=== PATIENT | female | born 1975 | race Caucasian/White ===

== ENCOUNTER 2019-11-10 10:28 | Outpatient (CLI) | payer BC, OTHER ==
[2019-11-11 14:12] LABS: SARS-CoV-2 MS2 Positive; SARS-CoV-2 N Gene Negative; SARS-CoV-2 S Gene Negative; SARS-CoV-2 orf1ab Negative
== END 2019-11-10 10:29 | disposition home or self-care (01) ==
LOC: LABBT 10:28
PROVIDERS: ATTEND Student in an Organized Health Care Education/Training Program
DX: Z01.812 Encounter for preprocedural laboratory examination (principal); Z11.59 Encounter for screening for other viral diseases; D25.9 Leiomyoma of uterus, unspecified
CPT/HCPCS: 87635; U0003

== ENCOUNTER 2019-11-15 07:51 | Day surgery (SDC) | payer BC ==
[2019-11-09 09:50] VITALS: BMI 22.1
[2019-11-10 13:49] LABS: BHCG - Serum Negative (NEGATIVE); Pregs Control Background? CLEAR/WHITE (CLR/WHITE); Pregs Control Bar Appear? YES (CONTROL BAR)
[2019-11-10 13:52] LABS: Hemoglobin 14.7 g/dL (12.0-16.0); Mean Corpuscular HGB CONC 33.8 g/dL (32.0-36.0); Mean Corpuscular Hemoglobin 31.6 pg (27.0-31.0); Mean Corpuscular Volume 93.6 fL (78.0-98.0); Platelet Count 187 thou/uL (130-400); RBC Distribution Width 10.7 % (11.5-14.5); Red Blood Cell (RBC) Count 4.65 mill/uL (4.20-5.40); White Blood Cell (WBC) Count 4.1 thou/uL (4.8-10.8)
[2019-11-15] MEDS ORDERED: Famotidine/PF 20 mg/2ml Vial ONE (08:10)
[2019-11-15] MEDS ORDERED: Gabapentin 300 MG CAP ONE (08:11)
[2019-11-15] MEDS ORDERED: CeleCOXIB 100 MG CAP ONE ×2 (08:11)
[2019-11-15] MEDS ORDERED: Bupivacaine PF 0.5% 30 ML VIAL ONE (09:31)
[2019-11-15] MEDS ORDERED: Lidocaine 1% w/Epinephrine 1:100K 20 ML VIAL ONE (09:31)
[2019-11-15] MEDS ORDERED: Fentanyl 100 MCG/2 ML VIAL ONE ×2 (09:33→12:46)
[2019-11-15] MEDS ORDERED: Midazolam HCl 2 mg/2 ml Vial ONE ×2 (09:33→09:35)
[2019-11-15] MEDS ORDERED: Promethazine HCl 25 MG/ML VIAL SLOW IVP PRN (10:38)
[2019-11-15] MEDS ORDERED: Promethazine HCl 25 MG/ML VIAL IM PRN (10:38)
[2019-11-15] MEDS ORDERED: Ondansetron HCl/PF 4 MG/2 ML Vial IVP PRN (10:38)
[2019-11-15] MEDS ORDERED: Ondansetron PF 4 MG/2 ML Vial ONE ×2 (11:52→15:33)
[2019-11-15] MEDS ORDERED: Rocuronium Bromide 10 MG/ML (10ML VIAL) ONE (11:52)
[2019-11-15] MEDS ORDERED: Naloxone HCl 0.4 mg/ml Vial ONE ×2 (11:52→12:11)
[2019-11-15] MEDS ORDERED: Lidocaine 1% PF 5 ML VIAL ONE (11:52)
[2019-11-15] MEDS ORDERED: Dexamethasone 20 MG/5 ML VIAL ONE (11:52)
[2019-11-15] MEDS ORDERED: Glycopyrrolate 0.2 MG/ML 5 ML SYRINGE ONE (11:52)
[2019-11-15] MEDS ORDERED: EPHEDRINE 25 MG/5 ML SYRINGE ONE (11:52)
[2019-11-15] MEDS ORDERED: PROPOFOL 200 MG/20 ML VIAL ONE (11:52)
[2019-11-15] MEDS ORDERED: Ketorolac Tromethamine 30 MG/ML VIAL ONE (11:52)
[2019-11-15] MEDS ORDERED: HYDROcodone/Acetaminophen 5/325 mg Tablet ONE (12:40)
[2019-11-15] MEDS ORDERED: Promethazine HCl 25 MG/ML VIAL ONE (15:56)
--- NOTE | 2019-11-15 18:30 | OP ---
DATE OF PROCEDURE: 11/15/2019 PREOPERATIVE DIAGNOSES: 1. Uterine fibroids. 2. Pelvic pain. POSTOPERATIVE DIAGNOSES: 1. Uterine fibroids. 2. Pelvic pain. PROCEDURES PERFORMED: Robotic-assisted total laparoscopic hysterectomy, bilateral salpingectomy with extracorporeal morcellation. ANESTHESIA: General endotracheal. ANTIQUE REFINISHER SURGEON: Heather Vásquez PA-C ESTIMATED BLOOD LOSS: 50 mL. IVF: 1200 mL of crystalloid. URINE OUTPUT: 380 mL of clear urine. COMPLICATIONS: None. DRAINS: Alberts catheter. PATHOLOGY: Uterus, cervix, and bilateral fallopian tubes. FINDINGS: Enlarged, 16-week size uterus, multiple fibroids present. Normal-appearing cervix and vagina. Normal-appearing ovaries and fallopian tubes bilaterally. Ureter and bladder noted to be intact throughout the case and excellent hemostasis at the conclusion was noted. DESCRIPTION OF PROCEDURE: Patient was taken to the operating room, where general anesthesia was obtained without difficulty. Patient was prepped and draped in a sterile fashion in the dorsal lithotomy position. A Alberts catheter was placed in the bladder. A speculum was placed in the vagina. The anterior lip of the cervix was grasped with a single-tooth tenaculum. The uterus then sounded to approximately 13 cm and the DEMARCUS manipulator was assembled with a 12 cm tip and a 4 cm colpotomizer ring. The DEMARCUS was then inserted into the uterus. Balloons were inflated. Tenaculum and speculum were removed out of the vagina. Legs were placed in low lithotomy. Attention was turned to the abdomen. A mixture of 1% lidocaine with epinephrine and 0.5% Marcaine plain was infiltrated into the umbilicus. Approximately 3 cm skin incision was made on the umbilicus at the superior aspect. The subcutaneous tissue below was grasped with Pradip clamps and the fascia was brought, tented up, and elevated. The Mayos were used to sharply incise the subcutaneous tissue and the fascia. This was extended to approximately 3 cm. The Mini GelPOINT was then placed inside this incision and the GelPOINT with a 12 mm trocar was affixed atop the Jcarlos. Pneumoperitoneum was obtained. Steep Trendelenburg was obtained. Right and left lower quadrant 8 mm robotic trocars placed under direct visualization after infiltrating with anesthetic. A right upper quadrant 11 mm port was also placed under direct visualization after infiltrating with anesthetic. The robot was then docked. The right robotic arm contained monopolar scissors. Left robotic arm contained a fenestrated bipolar. The surgeon console then took control. The right ovary was immediately visible. The uterus was somewhat deviated and twisted to the right side. Therefore, the uteroovarian on the right side since it was immediately visible was clamped and cauterized and incised. The fallopian tube was then able to be elevated and the mesosalpinx was cauterized and incised and then removed out of the abdomen. The round ligament was then visible on the right side. This was clamped and the midportion brought more immediately into the field of vision. It was noted at that time the external iliac was very close to this where I had clamped that. Therefore, the uteroovarian was taken down a little bit more by sequentially cauterizing and incising to the round ligament that then not freed that up and was able to be dissected out with the scissors and then incised in the midportion with not bringing the iliac into the field quite as much and keeping that away from any injury. The round ligament was incised and the posterior leaf of the broad ligament was incised. The retroperitoneum was begun to be dissected off the uterine vessels. The ureter was noted in the pelvic sidewall transperitoneally and then was able to be identified directly in the retroperitoneum. The anterior leaf of the broad ligament was also incised down to the bladder flap and then the bladder flap was incised tenting up on the thin peritoneum and incising with the scissors on cautery and then blunt dissection of the adventitia to the bladder was performed with the back end of the scissors and this brought the bladder down lower. Attention was then turned to the left side. The left fallopian tube was grasped and elevated. The mesosalpinx was cauterized and incised and then clamped across, cauterized, incised and removed out of the abdomen. The uteroovarian was also cauterized and incised on the left side and the round ligament was cauterized and incised and these two incisions then were met together after carefully achieving hemostasis of this vascular area. The anterior leaf of the broad ligament was incised down to below the level of the bladder flaps as well as the posterior leaf. At this time, the ureter was noted on the left side and it was very lateral. The uterine vessels were skeletonized on the left side and then clamped just above the level of the internal cervical os, was then fenestrated and cauterized several times. Attention was turned to the right side, where the right uterine vessels were adequately skeletonized and a bladder flap was further developed using the scoring on the pubocervical fascia and blunt dissection distally below the level of the colpotomizer ring. At that time, after adequate cautery of the right uterine pedicle was incised, there was some bleeding at that time and difficult hemostasis and at that time, it was noted that the ureter ran about 1 cm underneath where the top of the colpotomizer ring was as it crossed underneath the uterine vessel. Therefore, it was very close to the area of operation and the ureter could be visualized running across the anterior cervix, where it then went to insert on the trigone and this was visible. Therefore, this area was dissected down quite a ways in order to prevent any thermal spread or kinking of the ureter during the stricturing. The anterior colpotomy was performed. The left-sided vessels were again cauterized and incised. Pedicle was hemostatic and the posterior colpotomy was performed carefully approaching that laterally as the uterus was too heavy and boggy to lift up anteriorly. Once the uterus was completely transected, the DEMARCUS manipulator was removed out of the vagina and uterus and the balloon was placed in the vagina to maintain pneumoperitoneum. The vaginal cuff was irrigated copiously and hemostasis was achieved with fenestrated. The area on the right side where the ureter being close to the vaginal apex was evaluated and the ureter continued to vermiculate with extravasation of any fluid and it appeared to be well out of the way of any previous damage. The scissors were traded out for the needle nascar driver and a 2-0 Stratafix barbed suture was used to close the cuff carefully incorporating the pubocervical fascia, the vaginal mucosa, and posterior peritoneum in each bite. This was ran back for a second layer, and the needle was then removed out of the abdomen. Irrigation was again performed of all pedicles. Low pressure check was performed and hemostasis was noted to be excellent. The bladder was backfilled and no inadvertent injury to the bladder had occurred. At that time, the bag that had been previously placed into the abdomen was brought down into the pelvis. The sutures that were plicating the bag together were cut and removed out of the abdomen and the uterus was then placed into the bag easily. The bag was cinched up and brought out of the GelPOINT at the umbilicus and all instruments removed from the abdomen and the robot was then docked. At that time, the bag was brought out of the GelPOINT and the Jcarlos was removed and placed on the inside of the bag in order to hold the area open. The uterus was grasped with a Vane clamp and contained morcellation was performed using a C incision technique with an 11 blade. This took approximately an additional 15 minutes and once all tissue had been removed, the Jcarlos O was removed as well as the bag. There were no holes in the bag upon finishing the procedure. The incision of the umbilicus was irrigated and noted to be hemostatic. The fascia was reapproximated with 0 PDS in a running fashion with excellent reapproximation. The remainder of the anesthetic was infiltrated into all of the incisions. The skin was closed with a 4-0 Monocryl in a subcuticular fashion. Dermabond was applied. The vagina was checked and noted to be hemostatic with excellent closure. All instruments removed from the vagina. Patient tolerated the procedure well. Sponge and needle counts correct x2. Patient was taken to recovery room in stable condition. Patient received Ancef 2 g prior to the procedure. Job ID: [id number]
== END 2019-11-15 17:28 | disposition home or self-care (01) ==
LOC: SDC 07:51
PROVIDERS: ATTEND Student in an Organized Health Care Education/Training Program
PROC: 0UT74ZZ Resection of Bilateral Fallopian Tubes, Percutaneous Endoscopic Approach (ICD-10-PCS; principal; 2019-11-15)
PROC: 0UT94ZZ Resection of Uterus, Percutaneous Endoscopic Approach (ICD-10-PCS; principal; 2019-11-15)
DX: D25.9 Leiomyoma of uterus, unspecified (principal); N85.8 Other specified noninflammatory disorders of uterus; Z79.899 Other long term (current) drug therapy
CPT/HCPCS: 36415; 84703; 85027; 86850; 86900; 86901; 88307; J0690; J1100; J1885; J2001; J2250; J2310; J2405; J2550; J2704; J3010; S0020; S0028